=== PATIENT | female | born 1970 | race Caucasian/White ===

== ENCOUNTER 2021-09-30 22:52 | Emergency (ER) | payer OTHER, MEDICAID, SELFPAY ==
[2021-09-30 23:00] VITALS: BP 157/86; PULSE 71; RESP 18; TEMP 36.7; O2SAT 100; BMI 45.6
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
[2021-10-01] MEDS: KETOROLAC 30 MG/ML VIAL IM (00:59)
[2021-10-01] MEDS: diazePAM 5 MG TABLET PO (00:59)
[2021-10-01] MEDS: TET,DIPH,PERTUSS(ACELL),VAC/PF 0.5 ML SYRINGE IM (00:59)
== END 2021-10-01 01:14 | disposition home or self-care (01) ==
PROVIDERS: Emergency Provider Emergency Medicine
DX: S16.1XXA Strain of muscle, fascia and tendon at neck level, initial encounter (principal); V89.2XXA Person injured in unspecified motor-vehicle accident, traffic, initial encounter; Z23 Encounter for immunization
CPT/HCPCS: 90471; 96372; 99283; 90715; J1885